=== PATIENT | male | born 1995 | race Caucasian/White ===

== ENCOUNTER 2024-08-31 17:50 | Emergency (ER) | payer OTHER ==
[~2024-08-31] VITALS: Ht 170.2 cm; Wt 70.3 kg
[2024-08-31 18:02] VITALS: BP 142/80; TEMP 98.2
[2024-08-31] MEDS ORDERED: IBUP-1490 PO (18:36)
[2024-08-31] MEDS ORDERED: LIDOCAINE 5% (PATCH) 1 EA PATCH TP ONE (18:36)
[2024-08-31] MEDS ORDERED: KETOROLAC TROMETHAMINE 15 MG/ML VIAL ONE (18:36)
[2024-08-31] MEDS ORDERED: METH-649 PO (18:36)
[2024-08-31] MEDS ORDERED: ACETAMINOPHEN 325 MG TABLET ONE (18:36)
[2024-08-31] MEDS ORDERED: dexAMETHasone 4 MG TABLET ONE (18:37)
[2024-08-31] MEDS ORDERED: METHOCARBAMOL (500MG) 500 MG TABLET ONE (18:37)
[2024-08-31] MEDS: KETOROLAC TROMETHAMINE 15 MG/ML VIAL IM ONE (18:47)
[2024-08-31] MEDS: dexAMETHasone 1 MG TABLET PO ONE (18:47)
[2024-08-31] MEDS: LIDOCAINE 5% (PATCH) 1 EA PATCH TP ONE (18:48)
[2024-08-31] MEDS: ACETAMINOPHEN 325 MG TABLET PO ONE (18:48)
[2024-08-31] MEDS: METHOCARBAMOL (750MG) 750 MG TABLET PO ONE (18:48)
[2024-08-31 19:17] VITALS: O2SAT 98
== END 2024-08-31 19:19 | disposition home or self-care (01) ==
LOC: ER 17:57
DX: M54.50 Low back pain, unspecified (principal)
CPT/HCPCS: 99284; 96372; J1885; J8540